=== PATIENT | male | born 1960 | race Caucasian/White ===

== ENCOUNTER → 2020-11-26 | Outpatient (CLI) | payer BC | LOC: AMSURD 10:01 | DX: I25.10 Atherosclerotic heart disease of native coronary artery without angina pectoris (principal) ==

== ENCOUNTER → 2020-12-12 | Outpatient (CLI) | payer BC | LOC: CARDLAB 09:43 → CARDREHAB 09:43 → CARDLAB 12:46 | DX: I25.10 Atherosclerotic heart disease of native coronary artery without angina pectoris (principal) | CPT/HCPCS: A9500 ==

== ENCOUNTER → 2024-04-02 | Outpatient (CLI) | payer MEDICARE, OTHER | LOC: RAD 14:53 | DX: M19.011 Primary osteoarthritis, right shoulder (principal); M77.8 Other enthesopathies, not elsewhere classified ==